=== PATIENT | female | born 1955 | race Caucasian/White ===

== ENCOUNTER → 2018-04-02 | Outpatient (CLI) | payer BC | LOC: RAD 10:50 | DX: M43.16 Spondylolisthesis, lumbar region (principal); M41.86 Other forms of scoliosis, lumbar region ==

== ENCOUNTER → 2018-08-17 | Outpatient (CLI) | payer BC | LOC: RAD 14:01 | DX: M47.815 Spondylosis without myelopathy or radiculopathy, thoracolumbar region (principal); M43.16 Spondylolisthesis, lumbar region; M48.062 Spinal stenosis, lumbar region with neurogenic claudication ==

== ENCOUNTER → 2019-02-26 | Outpatient (CLI) | payer BC | LOC: RAD 11:13 | DX: M43.16 Spondylolisthesis, lumbar region (principal); M41.86 Other forms of scoliosis, lumbar region; M43.26 Fusion of spine, lumbar region; M21.20 Flexion deformity, unspecified site ==

== ENCOUNTER → 2020-09-14 | Outpatient (CLI) | payer OTHER | LOC: CAT 11:33 | PROVIDERS: ATTEND Family Medicine | DX: Z13.6 Encounter for screening for cardiovascular disorders (principal); I25.10 Atherosclerotic heart disease of native coronary artery without angina pectoris; E78.00 Pure hypercholesterolemia, unspecified ==

== ENCOUNTER → 2020-09-28 | Outpatient (CLI) | payer OTHER | LOC: ULTRA 07:44 | PROVIDERS: ATTEND Family Medicine | DX: N28.1 Cyst of kidney, acquired (principal); K75.89 Other specified inflammatory liver diseases; K76.89 Other specified diseases of liver ==